=== PATIENT | female | born 1955 | race Caucasian/White ===

== ENCOUNTER 2022-02-14 00:13 | Day surgery (SDC) | payer MEDICARE, SELFPAY ==
[2022-01-27 14:35] VITALS: BMI 27.8
[2022-02-14 06:44] VITALS: BP 166/80; PULSE 73; RESP 18; TEMP 36.1; O2SAT 99; BMI 28.1
[2022-02-14] MEDS: LACTATED RINGERS 1,000 ML 150 ML IV CONT (07:09)
--- NOTE | 2022-02-14 07:13 | P.PNAN_ITS ---
Anes - Initial Pre Proc Eval Procedure: Operation Date: 02/14/22 08:00 Proposed Procedures p Screening Colonoscopy - Yuriy Marin MD Date/Time: 02/14/22 07:13 Surgeon: Yuriy Marin MD Pre Op Diagnosis: hx colon polyps Patient Data Age: 66 Gender: F Height: 1.65 m Weight: 76.8 kg Last Vital Signs Temp 36.1 C L 02/14/22 06:44 Pulse 73 02/14/22 06:44 Resp 18 02/14/22 06:44 BP 166/80 H 02/14/22 06:44 Pulse Ox 99 02/14/22 06:44 O2 Del Method Room Air 02/14/22 06:44 Allergies Allergy/AdvReac Type Severity Reaction Status Date / Time Sulfa (Sulfonamide Allergy Unknown ITCHING Verified 02/14/22 06:54 Antibiotics) Home Medications Medication Instructions Recorded Confirmed Type ascorbate calcium (vitamin C) 500 500 mg PO DAILY 01/27/22 02/14/22 History mg capsule aspirin 81 mg tablet,delayed 81 mg PO DAILY 01/27/22 01/27/22 History release estradiol 0.01% (0.1 mg/gram) 1 appful vaginal DAILY 01/27/22 01/27/22 History vaginal cream (Estrace) multivit with minerals-iron 18 1 tablet PO DAILY 01/27/22 02/14/22 History mg-folic ac 400 mcg-vit K 25 mcg tablet (Adults Multivitamin) rosuvastatin 10 mg tablet 10 mg PO DAILY 01/27/22 02/14/22 History Patient hx anesthesia problems: none Family hx anesthesia problems: none Results Review: All pre-operative results and documents have been reviewed as part of the pre- operative evaluation. [facility] Past Medical History Medical History (Updated 02/14/22 @ 07:13 by Damion Diane MD) Hyperlipidemia Overweight Surgical History Surgical History (Updated 02/14/22 @ 07:14 by Damion Diane MD) H/O colonoscopy H/O: hysterectomy Social History Social History Smoking status: Never smoker Alcohol intake: current Drinks per week: 4 Substance use type: does not use Living arrangements: with family Spiritual care concerns: No Anes - Eval Final PreProcedure Day of Procedure 02/14/22 07:13 Patient weight: overweight Heart: regular rate and rhythm Lungs: clear to auscultation Airway: Mallampati scale class II Neurological: alert and oriented Last oral intake: >/= 8 hours ASA classification: II Emergent: no Anesthetic plan: proceed Anesthesia type and monitoring: general GIVS and standard monitoring Results Review: All pre-operative results and documents have been reviewed as part of the pre- operative evaluation. Informed Consent: The patient's anesthetic plan and its attendant risks and benefits were dis cussed with the patient/family/POA. Questions were solicited and answers provided to the satisfaction of the patient/family/POA.
--- NOTE | 2022-02-14 07:25 | PM.HPGS ---
History of Present Illness History of Present Illness Consent: Risks, benefits, and alternatives have been discussed and questions answered. Patient agrees to proceed with procedure. Chief complaint: hx colon polyps Narrative: Helena eTe is a 66 year old female Presents for screening colonoscopy. Patient was found to have adenomatous colon polyp removed from the colon in 2017. Patient's family history is significant her father had colon cancer metastases to the liver. Patient presents today for neoplasia screening colonoscopy. Review of Systems Review of Systems: Review of systems noncontributory. PMFSH Past Medical History Medical History (Updated 02/14/22 @ 07:26 by Yuriy Marin MD) Hyperlipidemia Overweight Surgical History Surgical History (Updated 02/14/22 @ 07:14 by Damion Diane MD) H/O colonoscopy H/O: hysterectomy Social History Social History Smoking status: Never smoker Alcohol intake: current Drinks per week: 4 Substance use type: does not use Living arrangements: with family Spiritual care concerns: No Meds Home Medications and Allergies Home Medications Medication Instructions Recorded Confirmed Type ascorbate calcium (vitamin C) 500 500 mg PO DAILY 01/27/22 02/14/22 History mg capsule aspirin 81 mg tablet,delayed 81 mg PO DAILY 01/27/22 01/27/22 History release estradiol 0.01% (0.1 mg/gram) 1 appful vaginal DAILY 01/27/22 01/27/22 History vaginal cream (Estrace) multivit with minerals-iron 18 1 tablet PO DAILY 01/27/22 02/14/22 History mg-folic ac 400 mcg-vit K 25 mcg tablet (Adults Multivitamin) rosuvastatin 10 mg tablet 10 mg PO DAILY 01/27/22 02/14/22 History Allergies Allergy/AdvReac Type Severity Reaction Status Date / Time Sulfa (Sulfonamide Allergy Unknown ITCHING Verified 02/14/22 06:54 Antibiotics) Vital Signs Vital Signs - 24 hr 02/14/22 06:44 Temperature 96.9 F L Pulse Rate 73 Respiratory Rate 18 Blood Pressure 166/80 H Pulse Oximetry 99 Oxygen Delivery Room Air Exam Narrative: Physical exam reveals patient to be alert. Vital signs stable. HEENT exam is unremarkable. Patient is anicteric. Lungs are clear to auscultation and percussion. Heart is without murmur or extra sounds. Abdomen bowel sounds are present soft nontender with no organomegaly. Digital external rectal exam is normal. Assessment and Plan Assessment and plan (1) History of colon polyps: Code(s): Z86.010 - Personal history of colonic polyps Status: Acute Assessment and Plan: Patient has a history of adenomatous colon polyp removed from the colon 2016. She also has a family history of colon cancer in her father. Plan for surveillance colonoscopy at least at 5 year intervals in the future.
[2022-02-14 08:19] VITALS: BP 108/68; PULSE 80; RESP 13; O2SAT 93
[2022-02-14 08:29] VITALS: BP 108/68; PULSE 78; RESP 13; O2SAT 94
[2022-02-14 08:39] VITALS: BP 131/83; PULSE 80; RESP 14; O2SAT 100
== END 2022-02-14 08:41 | disposition home or self-care (01) ==
PROVIDERS: PCP Internal Medicine; Visit Provider Internal Medicine Gastroenterology
PROC: 0DJD8ZZ Inspection of Lower Intestinal Tract, Via Natural or Artificial Opening Endoscopic (ICD-10-PCS; CPT 45378; principal; 2022-02-14 08:00)
DX: Z12.11 Encounter for screening for malignant neoplasm of colon (principal); D12.8 Benign neoplasm of rectum; K63.5 Polyp of colon; Z80.0 Family history of malignant neoplasm of digestive organs; E78.5 Hyperlipidemia, unspecified; Z79.82 Long term (current) use of aspirin
CPT/HCPCS: 45385; 88305; J2001; J2704; J7120